=== PATIENT | male | born 1990 ===

== ENCOUNTER 2016-11-18 20:50 | Emergency (ER) | payer SELFPAY ==
[2016-11-18 21:00] VITALS: BP 136/77; PULSE 95; RESP 16; TEMP 99.7; O2SAT 96
[2016-11-18] MEDS ORDERED: Albuterol-Ipratrop 3 mg / 0.5 (3 ml) UD ONE ×2 (21:06→21:32)
[2016-11-18] MEDS ORDERED: Albuterol-Ipratrop 3 mg / 0.5 (3 ml) UD INH STA ×2 (21:26)
--- NOTE | 2016-11-18 21:30 | ED PDOC ---
HPI: SOB/CHF/COPD Time Seen by Provider: 11/18/16 21:06 Chief Complaint (Nursing): Chest Pain Chief Complaint (Provider): Shortness of Breath/Wheezing History Per: Patient History/Exam Limitations: no limitations Onset/Duration Of Symptoms: Days (1 day) Current Symptoms Are (Timing): Still Present Initiating Event: Other (seasonal allergies) Quality: Tightness Severity: Moderate Associated Symptoms: Chest Pain (chest tightness), Other (dry cough; denies nausea or vomiting). denies: Fever, Sweating, Bloody Cough, Productive Cough Additional Complaint(s): Reece Kern is a 26 year old male, with a past medical history of known seasonal allergies in the past, that presents to the emergency department for the evaluation of shortness of breath, inclusive of wheezing, that the patient has been experiencing for 1 day. Patient states that he has had seasonal allergies for the past couple of weeks and that these symptoms are more active than what he has had in the past. Associated chest tightness and a dry cough are currently present. Patient reports using Flonase and Ariana today with mild relief due to chest tightness. Denies a fever, nausea, vomiting , or diaphoresis. PMD: none specified Past Medical History Reviewed: Historical Data, Nursing Documentation, Vital Signs Vital Signs: Last Vital Signs Temp 99.7 F H 11/18/16 20:53 Pulse 95 H 11/18/16 20:53 Resp 16 11/18/16 20:53 BP 136/77 11/18/16 20:53 Pulse Ox 96 11/18/16 22:40 - Medical History Other PMH: Seasonal Allergies - Surgical History Surgical History: No Surg Hx - Family History Family History: States: No Known Family Hx - Social History Alcohol: Social - Home Medications Home Medications: Ambulatory Orders Medication Instructions Recorded Albuterol HFA [Ventolin HFA 90 1 - 2 puff IH Q6 PRN #1 inhaler 11/18/16 mcg/actuation (8 g)] predniSONE [predniSONE Tab] 60 mg PO QAM #12 tab 11/18/16 - Allergies Allergies/Adverse Reactions: Allergies Allergy/AdvReac Type Severity Reaction Status Date / Time fruit Allergy RASH Uncoded 11/18/16 21:21 Review of Systems ROS Statement: Except As Marked, All Systems Reviewed And Found Negative Constitutional: Negative for: Fever, Sweats Eyes: Positive for: Other (pruritic sensation to b/l eyes) ENT: Positive for: Nose Congestion Cardiovascular: Positive for: Chest Pain (chest tightness) Respiratory: Positive for: Cough, Shortness of Breath, Wheezing. Negative for: Hemoptysis, Sputum Gastrointestinal: Negative for: Nausea, Vomiting Physical Exam - Reviewed Nursing Documentation Reviewed: Yes Vital Signs Reviewed: Yes - Physical Exam Appears: Positive for: Non-toxic, No Acute Distress, Uncomfortable Head Exam: Positive for: ATRAUMATIC, NORMOCEPHALIC Skin: Positive for: Normal Color, Warm, Dry Cardiovascular/Chest: Positive for: Regular Rate, Rhythm. Negative for: Murmur Respiratory: Positive for: Decreased Breath Sounds, Wheezing (mild b/l expiratory wheeze) Gastrointestinal/Abdominal: Positive for: Normal Exam, Soft. Negative for: Tenderness Extremity: Positive for: Normal ROM. Negative for: Tenderness Neurologic/Psych: Positive for: Alert, Oriented - ECG O2 Sat by Pulse Oximetry: 96 (RA) Pulse Ox Interpretation: Normal Medical Decision Making Medical Decision Makin:06 Initial Impression: 26 year old male presents to the emergency department with complaints of chest tightness and a bilateral expiratory wheeze due to seasonal allergies. Initial Plan: * EKG * Albuterol/Ipratropium 3 ml INH (x2) * predniSONE 60 mg PO * Peak Flow Pre/Post Respiratory Treatment (x2) * Reevaluation 21:30 Upon provider reevaluation patient is feeling better, is medically stable, and requires no further treatment in the emergency department at this time. Patient will be discharged home with a prescription for an Albuterol inhaler and Prednisone. Counseling was provided and all questions were answered regarding diagnosis and need for follow up with clinic in 2 days. Patient's parents are in agreement with provider's discharge plan and was prompted to return if symptoms persist or worsen. Clinical Impression: Allergic bronchitis Scribe Attestation: Documented by Han Ceballos, acting as a scribe for Conrado Mosley MD. Provider Scribe Attestation: All medical record entries made by the Scribe were at my direction and personally dictated by me. I have reviewed the chart and agree that the record accurately reflects my personal performance of the history, physical exam, medical decision making, and the department course for this patient. I have also personally directed, reviewed, and agree with the discharge instructions and disposition. Disposition - Clinical Impression Clinical Impression: Allergic bronchitis - Patient ED Disposition Is Patient to be Admitted: No - Disposition Disposition: Routine/Home Disposition Time: 22:00 Condition: IMPROVED Prescriptions: Albuterol HFA [Ventolin HFA 90 mcg/actuation (8 g)] 1 - 2 puff IH Q6 PRN #1 inhaler PRN Reason: Shortness Of Breath predniSONE [predniSONE Tab] 60 mg PO QAM #12 tab Instructions: Acute Bronchitis (ED), Allergies (ED)
--- NOTE | 2016-11-19 10:07 | CARD ---
APPROVED REPORT EKG Measurement Heart [id number] <Conclusion> Normal sinus rhythm Normal ECG
== END 2016-11-19 05:31 | disposition home or self-care (01) ==
LOC: H.ER 20:50
DX: J45.909 Unspecified asthma, uncomplicated (principal); R07.89 Other chest pain